=== PATIENT | male | born 1985 | race Caucasian/White ===

== ENCOUNTER 2020-03-16 07:35 | Observation (INO) ==
[2020-03-16] MEDS ORDERED: SODIUM CHLORIDE 0.9% 1,000 ML IV STA ×2 (07:48→08:36)
[2020-03-16 08:11] LABS: Basophils # 0.1 10*3/uL (0.0-0.2); Basophils % 0.4 % (0.0-0.8); Eosinophils # 0.1 10*3/uL (0.0-0.87); Eosinophils % 1.1 % (0.00-10.9); Hematocrit 46.5 VOL% (42.0-52.0); Hemoglobin 15.5 GM/DL (14.0-18.0); Immature Granulocytes % 0.5 %; Immature Granulocytes Absolute 0.06 #; Lymphocytes # 2.5 10*3/uL (1.4-4.0); Lymphocytes % 18.5 % (21.2-54.2); Mean Corpuscular HGB Conc 33.3 GM/DL (32-36); Mean Corpuscular Volume 90.5 FL (87-102); Mean Platelet Volume 9.6 FL (9.6-12.0); Monocytes % 7.7 % (1.7-12.7); Neutrophils % 71.8 % (38.7-73.9); Platelet Count 353 T/CUMM (130-400); Red Blood Count 5.14 MC/CUMM (3.8-5.5); Red Cell Distribution Width 12.6 % (9.3-17.3); White Blood Count 13.3 T/CUMM (4-12)
[2020-03-16 08:30] LABS: Albumin 4.1 G/DL (3.4-5.0); Bilirubin,Total 0.5 MG/DL (0.2-1.0); Calcium 10.8 MG/DL (8.5-10.1); Osmolality,Calculated 283.1 MOS/KG (273-304); Total Protein 7.8 G/DL (6.4-8.3)
[2020-03-16] MEDS ORDERED: ONDANSETRON 4 MG/2 ML VIAL IV STA (08:39)
[2020-03-16] MEDS ORDERED: fentaNYL 100 MCG/2 ML VIAL IV STA ×2 (08:40→09:15)
[2020-03-16 09:03] LABS: Bilirubin,Urine Negative (Negative); Blood, Urine Negative (Negative); Glucose,Urine (UA) Negative (Negative); Ketones,Urine Negative (Negative); Mucus,Urine Occasional /LPF (Occasional); Nitrite,Urine Negative (Negative); Protein,Urine Negative; RBC,Urine 4 /HPF (0-4); Urine Appearance CLEAR (Clear); Urine Color Yellow (Yellow); Urine Specific Gravity 1.013 (1.001-1.035); Urine Urobilinogen < 2.0 EU/DL (0.2-1.0); WBC,Urine 1 /HPF (0-6)
[2020-03-16 11:35] LABS: Barbiturates Screen,Urine Negative (Negative); Benzodiazepines Screen,Urine Negative (Negative); Cannabinoid Screen,Urine Negative (Negative); Opiate Screen,Urine Negative (Negative); Phencyclidine Screen,Urine Negative (Negative)
[2020-03-16] MEDS ORDERED: BISACODYL 5 MG TABLET PO PRN (11:36)
[2020-03-16] MEDS ORDERED: ONDANSETRON 4 MG/2 ML VIAL IV PRN (11:36)
[2020-03-16] MEDS ORDERED: LACTATED RINGERS 1,000 ML IV SCH (12:00)
[2020-03-16] MEDS: PIPERACILLIN/TAZOBACTAM 3,375 MG in SODIUM CHLORIDE 0.9% 100 ML IV SCH ×2 (14:20→20:45)
[2020-03-16] MEDS: LACTATED RINGERS 1,000 ML IV SCH ×2 (16:00→21:00)
[2020-03-17] MEDS: LACTATED RINGERS 1,000 ML IV SCH ×3 (02:43→10:32)
[2020-03-17] MEDS: PIPERACILLIN/TAZOBACTAM 3,375 MG in SODIUM CHLORIDE 0.9% 100 ML IV SCH ×3 (03:30→20:57)
[2020-03-17 05:41] LABS: Basophils # 0.1 10*3/uL (0.0-0.2); Basophils % 0.5 % (0.0-0.8); Eosinophils # 0.3 10*3/uL (0.0-0.87); Eosinophils % 2.3 % (0.00-10.9); Hematocrit 42.4 VOL% (42.0-52.0); Immature Granulocytes % 0.5 %; Immature Granulocytes Absolute 0.07 #; Lymphocytes # 3.1 10*3/uL (1.4-4.0); Lymphocytes % 24.2 % (21.2-54.2); Mean Platelet Volume 9.9 FL (9.6-12.0); Monocytes % 10.3 % (1.7-12.7); Neutrophils % 62.2 % (38.7-73.9); Platelet Count 308 T/CUMM (130-400); Red Blood Count 4.66 MC/CUMM (3.8-5.5); Red Cell Distribution Width 12.6 % (9.3-17.3); White Blood Count 12.9 T/CUMM (4-12)
[2020-03-17 06:07] LABS: Albumin 3.1 G/DL (3.4-5.0); Bilirubin,Total 1.6 MG/DL (0.2-1.0); Calcium 8.5 MG/DL (8.5-10.1); Osmolality,Calculated 274.7 MOS/KG (273-304); Total Protein 6.5 G/DL (6.4-8.3)
[2020-03-17] MEDS: ACETAMINOPHEN 325 MG TABLET PO PRN ×2 (07:52→20:29)
[2020-03-17] MEDS: PANTOPRAZOLE 40 MG TABLET PO SCH (08:37)
[2020-03-17] MEDS ORDERED: LIDOCAINE 1%/EPI INJ 20 ML VIAL ONE (11:42)
[2020-03-17] MEDS ORDERED: BUPIVACAINE MPF 0.25% 30 ML VIAL ONE (11:42)
[2020-03-17] MEDS ORDERED: TISSUE ADHESIVE 1 EACH APPLICATOR TOP ONE (11:42)
[2020-03-17] MEDS ORDERED: SEVOFLURANE 1 UNIT/15 MINUTE INH ONE (13:39)
[2020-03-17] MEDS ORDERED: LIDOCAINE 2% 5 ML VIAL ONE (13:39)
[2020-03-17] MEDS ORDERED: MIDAZOLAM 2 MG/2 ML VIAL ONE (13:39)
[2020-03-17] MEDS ORDERED: propofoL 200 MG/20 ML VIAL IV ONE (13:39)
[2020-03-17] MEDS ORDERED: fentaNYL 100 MCG/2 ML VIAL ONE (13:39)
[2020-03-17] MEDS ORDERED: KETOROLAC 30 MG/1 ML VIAL ONE (13:40)
[2020-03-17] MEDS ORDERED: GLYCOPYRROLATE 0.4 MG/2 ML VIAL ONE (13:40)
[2020-03-17] MEDS ORDERED: DEXAMETHASONE 4 MG/1 ML VIAL ONE (13:40)
[2020-03-17] MEDS ORDERED: ROCURONIUM 100 MG/10 ML VIAL IV ONE (13:40)
[2020-03-17] MEDS ORDERED: HYDROmorphone 2 MG/1 ML VIAL ONE (13:40)
[2020-03-17] MEDS ORDERED: LACTATED RINGERS 1,000 ML IV ONE (13:40)
[2020-03-17] MEDS ORDERED: NEOSTIGMINE 10 MG/10 ML VIAL ONE (13:40)
[2020-03-17] MEDS ORDERED: ONDANSETRON 4 MG/2 ML VIAL ONE (13:40)
[2020-03-17] MEDS: KETOROLAC 15 MG/1 ML VIAL IV PRN (18:27)
[2020-03-18] MEDS: LACTATED RINGERS 1,000 ML IV SCH ×4 (03:27→09:46)
[2020-03-18] MEDS: KETOROLAC 15 MG/1 ML VIAL IV PRN ×2 (05:48→11:01)
[2020-03-18] MEDS: PIPERACILLIN/TAZOBACTAM 3,375 MG in SODIUM CHLORIDE 0.9% 100 ML IV SCH (05:51)
[2020-03-18 06:25] LABS: Basophils % 0.2 % (0.0-0.8); Eosinophils % 0.1 % (0.00-10.9); Hematocrit 38.5 VOL% (42.0-52.0); Hemoglobin 13.1 GM/DL (14.0-18.0); Immature Granulocytes % 0.7 %; Immature Granulocytes Absolute 0.13 #; Lymphocytes # 1.9 10*3/uL (1.4-4.0); Lymphocytes % 10.1 % (21.2-54.2); Mean Corpuscular Volume 90.2 FL (87-102); Mean Platelet Volume 9.9 FL (9.6-12.0); Monocytes % 8.8 % (1.7-12.7); Neutrophils % 80.1 % (38.7-73.9); Platelet Count 324 T/CUMM (130-400); Red Blood Count 4.27 MC/CUMM (3.8-5.5); Red Cell Distribution Width 12.5 % (9.3-17.3); White Blood Count 18.9 T/CUMM (4-12)
[2020-03-18 06:58] LABS: Albumin 2.8 G/DL (3.4-5.0); Bilirubin,Total 0.5 MG/DL (0.2-1.0); Calcium 8.4 MG/DL (8.5-10.1); Osmolality,Calculated 276.7 MOS/KG (273-304); Total Protein 6.2 G/DL (6.4-8.3)
[2020-03-18] MEDS: PANTOPRAZOLE 40 MG TABLET PO SCH (08:48)
[2020-03-18 11:46] VITALS: BP 116/75
== END 2020-03-18 12:46 | disposition home or self-care (01) ==
LOC: N.EDINP 07:35 → N.ED 07:35 → N.5E 16:38
PROVIDERS: ADMIT Surgery; ATTEND Surgery
PROC: LAPCHOL (2020-03-17 12:19)